=== PATIENT | male | born 1970 | race Caucasian/White ===

== ENCOUNTER 2019-06-15 17:29 | Emergency (ER) | payer OTHER, SELFPAY ==
[2019-06-15] VITALS (17 sets, daily range): BP systolic 109–128; BP diastolic 59–94; PULSE 80–103; RESP 11–25; TEMP 37.7; O2SAT 96–100; BMI 25.4
--- NOTE | 2019-06-15 17:38 | DI.CT.S_ITS ---
PROCEDURE: CT HEAD/BRAIN WO CON INDICATIONS: fell off roof, repetitive answers, brusing face TECHNIQUE: Noncontrast 4.5 mm thick angled axial sections acquired from the foramen magnum to the vertex, with coronal and sagittal reformats. For radiation dose reduction, the following was used: automated exposure control, adjustment of mA and/or kV according to patient size. COMPARISON: None. FINDINGS: Image quality: Excellent. CSF spaces: Basal cisterns are patent. No extra-axial fluid collections. Ventricles are normal in size and shape. Brain: No midline shift. No intracranial masses or hemorrhage. Paz-white matter interface is normal. Skull and face: Calvarium and visualized facial bones are intact, without suspicious lesions. Sinuses: Visualized sinuses and mastoids are clear. IMPRESSION: No CT evidence of acute intracranial pathology. No gross acute skull fracture. Dictated by: Raj Inman M.D. on 06/15/2019 at 18:34 Approved by: Raj Inman M.D. on 06/15/2019 at 18:35
--- NOTE | 2019-06-15 17:38 | DI.RAD.S_ITS ---
PROCEDURE: XR CHEST 1V INDICATIONS: fell off roof, repetitive answers, brusing face TECHNIQUE: One view of the chest was acquired. COMPARISON: None. FINDINGS: Surgical changes and devices: None. Lungs and pleura: Lungs are clear. No pleural effusions or pneumothorax. Mediastinum: Mediastinal contours appear normal. Heart size is normal. Bones and chest wall: No suspicious bony lesions. Overlying soft tissues appear unremarkable. IMPRESSION: No acute cardiopulmonary pathology. Dictated by: Raj Inman M.D. on 06/15/2019 at 18:41 Approved by: Raj Inman M.D. on 06/15/2019 at 18:41
--- NOTE | 2019-06-15 17:38 | DI.CT.S_ITS ---
PROCEDURE: CT FACIAL BONES WO CON INDICATIONS: bruising face, repetitive questioning, fell off roof TECHNIQUE: Noncontrast 2.5 mm thick axial images acquired from the mandible through the frontal sinuses, with coronal and sagittal reformatting. For radiation dose reduction, the following was used: automated exposure control, adjustment of mA and/or kV according to patient size. COMPARISON: None. FINDINGS: Image quality: Excellent. Bones and teeth: Orbital blake are intact. Sinus blake show no fracture or deformity. Nasal bones and septum are intact. Visualized portions of the mandible demonstrate no fractures or subluxation. Zygomatic arches are intact. Pterygoid plates are intact. Visualized portions of the skull base and auditory canals are intact. Sinuses: Paranasal sinuses are aerated, without fluid levels, mucosal thickening, or mucoceles. Mastoid air cells are aerated. Soft tissues: No edema, masses, or fluid collections. No enlarged lymph nodes. No soft tissue lacerations or debris. Vascular: Visualized vascular structures appear normal in the absence of contrast. Bony vascular foramina and canals are intact. IMPRESSION: 1. No gross acute facial bone or nasal bone fracture. 2. Bilateral orbital blake are intact. Dictated by: Raj Inman M.D. on 06/15/2019 at 18:35 Approved by: Raj Inman M.D. on 06/15/2019 at 18:37
--- NOTE | 2019-06-15 17:38 | DI.RAD.S_ITS ---
PROCEDURE: XR HIP W PEL IF DONE RT 2V INDICATIONS: right hip pain TECHNIQUE: AP pelvis with lateral view(s) of the right hip(s). COMPARISON: None. FINDINGS: Bones: No fractures or dislocations. Pelvic ring appears intact. No suspicious bony lesions. Soft tissues: The visualized bowel gas pattern is normal. No suspicious soft tissue calcifications. IMPRESSION: No gross acute right hip fracture or dislocation. Dictated by: Raj Inman M.D. on 06/15/2019 at 18:40 Approved by: Raj Inman M.D. on 06/15/2019 at 18:41
--- NOTE | 2019-06-15 17:38 | DI.CT.S_ITS ---
PROCEDURE: CT CERVICAL SPINE WO CON INDICATIONS: fell off roof, repetitive answers, brusing face TECHNIQUE: Noncontrast 3 mm thick sections acquired from the skull base to the T4 level. Sagittal and coronal reformats were then constructed. For radiation dose reduction, the following was used: automated exposure control, adjustment of mA and/or kV according to patient size. COMPARISON: None. FINDINGS: Image quality: Excellent. Bones: There is straightening of normal cervical lordosis. No acute cervical spine vertebral body fracture or dislocation. Vertebral body heights are well-preserved. Mild degenerative end plate changes at C5-6 and C6-7 levels are seen. There is a nondisplaced fracture involving right lateral first rib. Other visualized upper ribs are intact. Soft tissues: Prevertebral soft tissues are normal in thickness. No paravertebral hematomas. No apical pneumothoraces. IMPRESSION: 1. No acute cervical spine fracture or spondylolisthesis. 2. Nondisplaced right lateral first rib fracture. 3. Very mild degenerative end plate changes in lower cervical spine. Dictated by: Raj Inman M.D. on 06/15/2019 at 18:37 Approved by: Raj Inman M.D. on 06/15/2019 at 18:39
--- NOTE | 2019-06-15 17:38 | DI.RAD.S_ITS ---
PROCEDURE: XR WRIST RT MIN 3V INDICATIONS: right wrist pain TECHNIQUE: 3 views of the wrist were acquired. COMPARISON: None. FINDINGS: Bones: Acute comminuted and impacted fracture involving distal radius with dorsal displacement at fracture site and shortening of distal radius. Fracture of ulnar styloid is also noted. No gross dislocation. Scaphoid view: Scaphoid is intact. Soft tissues: No suspicious soft tissue calcifications. IMPRESSION: Acute comminuted and impacted distal radial fracture and ulnar styloid fracture as above. Dictated by: Raj Inman M.D. on 06/15/2019 at 18:39 Approved by: Raj Inman M.D. on 06/15/2019 at 18:40
--- NOTE | 2019-06-15 17:39 | DI.US.S_ITS ---
PROCEDURE: US ABDOMEN LIMITED INDICATIONS: FALL FROM 10' ROOF TECHNIQUE: Real-time focused scanning was performed of the abdomen, with image documentation. COMPARISON: None. FINDINGS: Limited ultrasound examination of liver and spleen shows no gross laceration. No free fluid is seen in all 4 quadrants of abdomen. IMPRESSION: No gross acute injury to liver or spleen. No abdominal free fluid. Dictated by: Raj Inman M.D. on 06/15/2019 at 18:53 Approved by: Raj Inman M.D. on 06/15/2019 at 18:54
--- NOTE | 2019-06-15 17:48 | ED_ITS ---
HPI - Trauma <Marilu Bhatia, - Last Filed: 06/18/19 09:10> General Chief Complaint: Trauma Stated Complaint: multi trauma Time Seen by Provider: 06/15/19 17:38 Source: patient Mode of arrival: wheelchair Limitations: altered mental status History of Present Illness HPI narrative: This is a 48-year-old male who comes to the emergency department with complaint of fall. The report was that patient fell from a roof. Either 8-15 feet it is unclear exact height. Patient does not recall the incident, he has repetitive answers and questions. He was sent via private plane unaccompanied from [facility] [place]. Patient can tell me his name, he has difficulty with the year, he has difficulty with the month, he does not recall the event. He does seem to understand his past medical history but unclear if this is correct. [place]. Per patient he lives in [place] and is building a house on [facility] [place]. He has complaint of right wrist pain, right hip pain as well as some bruising on the right side of the face. He denies any headache currently, he denies any neck pain, he denies any shortness of breath or abdominal pain. Denies any feeling of nausea or vomiting and denies any issues with urination or bowel movements. States he can move his legs fine but has any has pain with trying to weight bear on his right leg. He does state his fingers feel tingly. Related Data Allergies Allergy/AdvReac Type Severity Reaction Status Date / Time No Known Drug Allergies Allergy Verified 06/15/19 18:52 <Yaa Dave DO - Last Filed: 06/16/19 02:01> Review of Systems ROS Unobtainable: All systems reviewed & are unremarkable except as noted in HPI and below Constitutional Denies chills, Denies fever(s), Denies headache(s), Denies lethargy and Denies weakness Eyes Denies change in vision, Denies eye discharge, Denies irritation and Denies loss of vision ENT Ears, Nose, Mouth, and Throat: Denies headache(s) Cardiovascular Denies chest pain, Denies irregular heart rhythm, Denies lightheadedness, Denies palpitations and Denies orthopnea Gastrointestinal Gastrointestinal: Denies abdominal pain, Denies change in bowel habits, Denies diarrhea, Denies nausea and Denies vomiting Musculoskeletal Reports system reviewed and no additional complaints, except as docu and Reports deformity (Right wrist) Integumentary/Breasts Denies pruritus, Denies erythema, Denies rash and Reports wounds (Contusion right face) Neurologic Denies headache(s), Denies loss of vision and Denies weakness Comments: Repetitive questioning Probable LOC Endocrine Denies palpitations PFSH <Marilu Bhatia DO - Last Filed: 06/18/19 09:10> Medical History Patient denies significant medical history (Acute) Social History Smoking Status: Never smoker Social History Smoking Status: Never smoker Exam <Marilu Bhatia DO - Last Filed: 06/18/19 09:10> Narrative Exam Narrative: GEN: C-collar in ED. Patient appears in mild distress. HEAD: Patient has ecchymosis on the right cheek and adjacent to the right eye at the edge of the lateral canthus with a small abrasion, no raccoon/Walker sign. NECK: Nontender, painless range of motion, trachea midline Positive for Nexus criteria, there is no line tenderness, distracting injury, positive altered mental status, neuro deficit, recent EtOH. EYES: PERRLA, EOMI ENT: External inspection normal, trachea is midline, TM's are normal no hemotypanum, Nares are clear, no septal hematoma, no dental or oral injury, airway is normal and with normal occlusion, No bony tenderness RESP: Chest is nontender and has symmetric movement, no ecchymosis, breath sounds are normal no crackles, wheezes or rales CVS: Heart sounds are normal, no murmur noted, No JVD. ABG/GI: Nontender, soft, normal bowel sounds, no distention, no organomegaly, pelvic rock is negative GENIT, RECTAL: Normal external inspection. NEURO: Oriented AOx1, neuro is grossly intact, sensation and motor is normal all 4 extremities moving, cranial nerves II through XII are intact, GCS is 15 PSYCH: Normal mood and affect SKIN: Intact, warm and dry, no crepitus and without decubitus BACK: No CVA tenderness, no vertebral tenderness, no step-off's, no crepitus EXT: Patient has deformity of his right wrist, he has a radial pulse that is 2+, he has cap refill less than 2 seconds. He has sensation to light touch in full range of motion of his fingers but describes tingling. Right hip is mildly tender, patient has full range of motion passive and active leave. No pedal edema, normal color and temperature, normal range of motion of extremities with normal tendon exam except as above, 2+ pulses in all four extremities Initial Vital Signs Initial Vital Signs: Vital Signs Temperature 99.8 F H 06/15/19 17:35 Pulse Rate 103 H 06/15/19 17:35 Respiratory Rate 06/15/19 17:35 Blood Pressure 128/81 06/15/19 17:35 Pulse Oximetry 100 06/15/19 17:35 <Yaa Dave DO - Last Filed: 06/16/19 02:01> Initial Vital Signs Initial Vital Signs: Vital Signs Temperature 99.8 F H 06/15/19 17:35 Pulse Rate 103 H 06/15/19 17:35 Respiratory Rate 06/15/19 17:35 Blood Pressure 128/81 06/15/19 17:35 Pulse Oximetry 100 06/15/19 17:35 <Yaa Dave, DO - Last Filed: 06/16/19 02:01> Orthopedic Fracture Reduction Fracture #1: Time Out Performed: Yes Side: right Fracture Reduction Location: radius and ulna Analgesia: procedural sedation Technique: direct manipulation and traction/counter-traction Post Reduction X-rays Demonstrate: acceptable reduction Post-reduction neuro exam: no change (numbness in thumb.) Post-reduction vascular exam: intact Splint Applied: Yes Patient Tolerated Procedure: Well Orthopedic Splinting/Casting Injury #1: Side: right Upper Extremity Injury Location: wrist Upper Extremity Immobilizer: sugar tong splint Post splinting neuro exam: intact and no change Post splinting vascular exam: no change Placed by: Provider Procedural Sedation Patient Age: Patient is 5yrs or older Consent signed: Yes Time out performed: Yes Indication: fracture/dislocation reduction ASA Class: I Mallampati Airway Classification: Class I Preparation: cardiac cath lab technologist applied, pulse oximeter, capnometry used, reversal agents at bedside, suction/airway equipment at bedside and IV secured IV Propofol dose (mg): 85 ED Sedation Level: Moderate (Concious) Patient Tolerated Procedure: Well Complications: none Interventions: Airway repositioned Scores <Marilu Bhatia DO - Last Filed: 06/18/19 09:10> GCS Bertrand coma scale eye opening: Spontaneous Bertrand coma scale verbal response: Confused Bertrand coma scale motor response: Obey commands Le coma scale total score: 14 Course <Marilu Bhatia DO - Last Filed: 06/18/19 09:10> Orders Ordered: Discontinued Medications Diphtheria/Tetanus/Acell Pertussis (Adacel) 0.5 ml IM .ONCE ONE Stop: 06/15/19 19:07 Last Admin: 06/15/19 19:07 Dose: 0.5 ml Sodium Chloride (Normal Saline 0.9%) 1,000 mls @ 150 mls/hr IV CONT KATY Last Infusion: 06/15/19 22:46 Dose: 0 mls/hr Admin: 06/15/19 19:02 Dose: 150 mls/hr Propofol (Diprivan) 85 mg 1 mg/kg (85 mg) IV NOW ONE Stop: 06/15/19 19:17 Last Admin: 06/15/19 19:45 Dose: 85 mg Vital Signs - 8 hr 06/15/19 19:10 06/15/19 19:41 06/15/19 19:47 Pulse Rate 92 H 88 89 Respiratory Rate 15 17 24 Blood Pressure [Left Arm] 109/90 118/69 119/74 Pulse Oximetry 96 100 99 06/15/19 19:50 06/15/19 19:53 06/15/19 19:58 Pulse Rate 80 80 82 Respiratory Rate 12 14 20 Blood Pressure [Left Arm] 122/74 119/73 122/83 Pulse Oximetry 100 100 100 06/15/19 20:00 06/15/19 20:05 06/15/19 20:10 Pulse Rate 84 86 88 Respiratory Rate 19 15 21 Blood Pressure [Left Arm] 118/79 116/74 110/94 H Pulse Oximetry 100 97 99 06/15/19 20:15 06/15/19 20:21 06/15/19 20:30 Pulse Rate 87 94 H Respiratory Rate 16 20 22 Blood Pressure [Left Arm] 110/59 L 117/74 Pulse Oximetry 99 100 06/15/19 21:00 06/15/19 21:48 06/15/19 22:15 Pulse Rate 97 H 91 H 91 H Respiratory Rate 25 H 20 11 L Blood Pressure [Left Arm] 118/69 112/71 114/69 Pulse Oximetry 100 100 100 06/15/19 22:26 Pulse Rate 90 Respiratory Rate 19 Blood Pressure [Left Arm] 118/69 Pulse Oximetry 97 <Yaa Dave DO - Last Filed: 06/16/19 02:01> Orders Ordered: Discontinued Medications Diphtheria/Tetanus/Acell Pertussis (Adacel) 0.5 ml IM .ONCE ONE Stop: 06/15/19 19:07 Last Admin: 06/15/19 19:07 Dose: 0.5 ml Sodium Chloride (Normal Saline 0.9%) 1,000 mls @ 150 mls/hr IV CONT KATY Last Infusion: 06/15/19 22:46 Dose: 0 mls/hr Admin: 06/15/19 19:02 Dose: 150 mls/hr Propofol (Diprivan) 85 mg 1 mg/kg (85 mg) IV NOW ONE Stop: 06/15/19 19:17 Last Admin: 06/15/19 19:45 Dose: 85 mg Vital Signs - 8 hr 06/15/19 19:10 06/15/19 19:41 06/15/19 19:47 Pulse Rate 92 H 88 89 Respiratory Rate 15 17 24 Blood Pressure [Left Arm] 109/90 118/69 119/74 Pulse Oximetry 96 100 99 06/15/19 19:50 06/15/19 19:53 06/15/19 19:58 Pulse Rate 80 80 82 Respiratory Rate 12 14 20 Blood Pressure [Left Arm] 122/74 119/73 122/83 Pulse Oximetry 100 100 100 06/15/19 20:00 06/15/19 20:05 06/15/19 20:10 Pulse Rate 84 86 88 Respiratory Rate 19 15 21 Blood Pressure [Left Arm] 118/79 116/74 110/94 H Pulse Oximetry 100 97 99 06/15/19 20:15 06/15/19 20:21 06/15/19 20:30 Pulse Rate 87 94 H Respiratory Rate 16 20 22 Blood Pressure [Left Arm] 110/59 L 117/74 Pulse Oximetry 99 100 06/15/19 21:00 06/15/19 21:48 06/15/19 22:15 Pulse Rate 97 H 91 H 91 H Respiratory Rate 25 H 20 11 L Blood Pressure [Left Arm] 118/69 112/71 114/69 Pulse Oximetry 100 100 100 06/15/19 22:26 Pulse Rate 90 Respiratory Rate 19 Blood Pressure [Left Arm] 118/69 Pulse Oximetry 97 MDM - Trauma <Marilu Bhatia, - Last Filed: 06/18/19 09:10> Lab Data Result diagrams: 06/15/19 18:50 06/15/19 18:50 Lab Results 06/15/19 06/15/19 06/15/19 Range/Units 18:50 18:50 18:50 WBC 12.9 H (4.5-11.0) X10^3/uL RBC 4.67 (4.5-5.9) X10^6/uL Hgb 14.5 (13.5-17.5) g/dL Hct 42.2 (41-53) % MCV 90.3 (80-100) fL MCH 31.0 (26-34) PG MCHC 34.3 (30-36) % RDW 12.8 (11.6-14.8) % Plt Count 196 (150-400) X10^3/uL Neut % (Auto) 88.4 H (50-75) % Lymph % (Auto) 4.8 L (25-40) % [place] % (Auto) 6.4 (3-14) % Eos % (Auto) 0.1 L (2-4) % Baso % (Auto) 0.3 (0-2) % Neut # (Auto) 15480 H (0532-7787) /uL Lymph # (Auto) 600 L (2097-2848) /uL [place] # (Auto) 800 (0-900) /uL Eos # (Auto) 0 (0-450) /uL Baso # (Auto) 0 (0-100) /uL PT 13.5 H (10.1-12.7) SECONDS INR 1.2 (0.9-1.3) APTT 26 L (26.4-36.2) SECONDS Sodium 139 (137-145) mmol/L Potassium 3.5 (3.4-5.1) mmol/L Chloride 105 (98-107) mmol/L Carbon Dioxide 23 (22-32) mmol/L BUN 22 H (9-20) mg/dL Creatinine 1.00 (0.66-1.25) mg/dL Estimated GFR > 60.0 (>60) mL/min BUN/Creatinine Ratio 22.0 (6-22) Glucose 101 H (70-100) mg/dL Calcium 9.5 (8.4-10.2) mg/dL Total Bilirubin 3.7 H (0.2-1.3) mg/dL AST 50 (17-59) IU/L ALT 47 (21-72) IU/L Alkaline Phosphatase 83 (38-126) U/L Total Creatine Kinase 313 H (55-170) U/L CK-MB (CK-2) 3.69 H (<2.37) ng/mL CK-MB (CK-2) Rel Index 1.2 L (1.5-5.0) % Troponin I 0.019 (0.01-0.034) ng/mL Total Protein 7.2 (6.3-8.2) g/dL Albumin 4.2 (3.5-5.0) g/dL Globulin 3.0 (1.7-4.1) g/dL Albumin/Globulin Ratio 1.4 (1.0-2.8) Lipase 96 (23-300) U/L Urine Opiates Screen (Negative) Ur Oxycodone Screen (Negative) Urine Methadone Screen (Negative) Ur Barbiturates Screen (Negative) U Tricyclic Antidepress (Negative) Ur Phencyclidine Scrn (Negative) Ur Amphetamines Screen (Negative) U Methamphetamines Scrn (Negative) Ur MDMA Scrn (Ecstasy) (Negative) U Benzodiazepines Scrn (Negative) Urine Cocaine Screen (Negative) U Marijuana (THC) Screen (Negative) Ethyl Alcohol < 10 mg/dL Blood Type Antibody Screen 06/15/19 06/15/19 Range/Units 18:50 21:05 WBC (4.5-11.0) X10^3/uL RBC (4.5-5.9) X10^6/uL Hgb (13.5-17.5) g/dL Hct (41-53) % MCV (80-100) fL MCH (26-34) PG MCHC (30-36) % RDW (11.6-14.8) % Plt Count (150-400) X10^3/uL Neut % (Auto) (50-75) % Lymph % (Auto) (25-40) % Clarion % (Auto) (3-14) % Eos % (Auto) (2-4) % Baso % (Auto) (0-2) % Neut # (Auto) (0823-5253) /uL Lymph # (Auto) (1043-8949) /uL Clarion # (Auto) (0-900) /uL Eos # (Auto) (0-450) /uL Baso # (Auto) (0-100) /uL PT (10.1-12.7) SECONDS INR (0.9-1.3) APTT (26.4-36.2) SECONDS Sodium (137-145) mmol/L Potassium (3.4-5.1) mmol/L Chloride (98-107) mmol/L Carbon Dioxide (22-32) mmol/L BUN (9-20) mg/dL Creatinine (0.66-1.25) mg/dL Estimated GFR (>60) mL/min BUN/Creatinine Ratio (6-22) Glucose (70-100) mg/dL Calcium (8.4-10.2) mg/dL Total Bilirubin (0.2-1.3) mg/dL AST (17-59) IU/L ALT (21-72) IU/L Alkaline Phosphatase (38-126) U/L Total Creatine Kinase (55-170) U/L CK-MB (CK-2) (<2.37) ng/mL CK-MB (CK-2) Rel Index (1.5-5.0) % Troponin I (0.01-0.034) ng/mL Total Protein (6.3-8.2) g/dL Albumin (3.5-5.0) g/dL Globulin (1.7-4.1) g/dL Albumin/Globulin Ratio (1.0-2.8) Lipase (23-300) U/L Urine Opiates Screen Negative (Negative) Ur Oxycodone Screen Negative (Negative) Urine Methadone Screen Negative (Negative) Ur Barbiturates Screen Negative (Negative) U Tricyclic Antidepress Negative (Negative) Ur Phencyclidine Scrn Negative (Negative) Ur Amphetamines Screen Negative (Negative) U Methamphetamines Scrn Negative (Negative) Ur MDMA Scrn (Ecstasy) Negative (Negative) U Benzodiazepines Scrn Negative (Negative) Urine Cocaine Screen Negative (Negative) U Marijuana (THC) Screen Negative (Negative) Ethyl Alcohol mg/dL Blood Type A Positive Antibody Screen Negative Urine Dip Bedside Urine Glucose Negative Bedside Urine Bilirubin - Negative Bedside Urine Ketone +++ 80 Urine Specific [place] 1.015 Bedside Urine Occult Blood - Negative Bedside Urine pH 7.0 Bedside Urine Protein +/- 15 Bedside Urine Urobilinogen +/- 1mg Bedside Urine Nitrite - Negative Bedside Urine Leukocytes - Negative Esterase MDM Narrative Medical decision making narrative: Patient care transferred to Dr. Dave. Patient imaging, labs, EKG are pending. Patient's splint was readjusted as it was not supporting his wrist and placed in order to support his wrist better. Patient had just gne for CT scan when Dr. Dave arrived. Vitals signs have been stable. No worsening or improvement in mentation. <Yaa Dave, DO - Last Filed: 06/16/19 02:01> Lab Data Attestation: I reviewed the patient's lab results. Lab Results 06/15/19 06/15/19 06/15/19 Range/Units 18:50 18:50 18:50 WBC 12.9 H (4.5-11.0) X10^3/uL RBC 4.67 (4.5-5.9) X10^6/uL Hgb 14.5 (13.5-17.5) g/dL Hct 42.2 (41-53) % MCV 90.3 (80-100) fL MCH 31.0 (26-34) PG MCHC 34.3 (30-36) % RDW 12.8 (11.6-14.8) % Plt Count 196 (150-400) X10^3/uL Neut % (Auto) 88.4 H (50-75) % Lymph % (Auto) 4.8 L (25-40) % [place] % (Auto) 6.4 (3-14) % Eos % (Auto) 0.1 L (2-4) % Baso % (Auto) 0.3 (0-2) % Neut # (Auto) 34556 H (6268-8128) /uL Lymph # (Auto) 600 L (9142-2627) /uL [place] # (Auto) 800 (0-900) /uL Eos # (Auto) 0 (0-450) /uL Baso # (Auto) 0 (0-100) /uL PT 13.5 H (10.1-12.7) SECONDS INR 1.2 (0.9-1.3) APTT 26 L (26.4-36.2) SECONDS Sodium 139 (137-145) mmol/L Potassium 3.5 (3.4-5.1) mmol/L Chloride 105 (98-107) mmol/L Carbon Dioxide 23 (22-32) mmol/L BUN 22 H (9-20) mg/dL Creatinine 1.00 (0.66-1.25) mg/dL Estimated GFR > 60.0 (>60) mL/min BUN/Creatinine Ratio 22.0 (6-22) Glucose 101 H (70-100) mg/dL Calcium 9.5 (8.4-10.2) mg/dL Total Bilirubin 3.7 H (0.2-1.3) mg/dL AST 50 (17-59) IU/L ALT 47 (21-72) IU/L Alkaline Phosphatase 83 (38-126) U/L Total Creatine Kinase 313 H (55-170) U/L CK-MB (CK-2) 3.69 H (<2.37) ng/mL CK-MB (CK-2) Rel Index 1.2 L (1.5-5.0) % Troponin I 0.019 (0.01-0.034) ng/mL Total Protein 7.2 (6.3-8.2) g/dL Albumin 4.2 (3.5-5.0) g/dL Globulin 3.0 (1.7-4.1) g/dL Albumin/Globulin Ratio 1.4 (1.0-2.8) Lipase 96 (23-300) U/L Urine Opiates Screen (Negative) Ur Oxycodone Screen (Negative) Urine Methadone Screen (Negative) Ur Barbiturates Screen (Negative) U Tricyclic Antidepress (Negative) Ur Phencyclidine Scrn (Negative) Ur Amphetamines Screen (Negative) U Methamphetamines Scrn (Negative) Ur MDMA Scrn (Ecstasy) (Negative) U Benzodiazepines Scrn (Negative) Urine Cocaine Screen (Negative) U Marijuana (THC) Screen (Negative) Ethyl Alcohol < 10 mg/dL Blood Type Antibody Screen 06/15/19 06/15/19 Range/Units 18:50 21:05 WBC (4.5-11.0) X10^3/uL RBC (4.5-5.9) X10^6/uL Hgb (13.5-17.5) g/dL Hct (41-53) % MCV (80-100) fL MCH (26-34) PG MCHC (30-36) % RDW (11.6-14.8) % Plt Count (150-400) X10^3/uL Neut % (Auto) (50-75) % Lymph % (Auto) (25-40) % [place] % (Auto) (3-14) % Eos % (Auto) (2-4) % Baso % (Auto) (0-2) % Neut # (Auto) (6149-7442) /uL Lymph # (Auto) (8645-7719) /uL [place] # (Auto) (0-900) /uL Eos # (Auto) (0-450) /uL Baso # (Auto) (0-100) /uL PT (10.1-12.7) SECONDS INR (0.9-1.3) APTT (26.4-36.2) SECONDS Sodium (137-145) mmol/L Potassium (3.4-5.1) mmol/L Chloride (98-107) mmol/L Carbon Dioxide (22-32) mmol/L BUN (9-20) mg/dL Creatinine (0.66-1.25) mg/dL Estimated GFR (>60) mL/min BUN/Creatinine Ratio (6-22) Glucose (70-100) mg/dL Calcium (8.4-10.2) mg/dL Total Bilirubin (0.2-1.3) mg/dL AST (17-59) IU/L ALT (21-72) IU/L Alkaline Phosphatase (38-126) U/L Total Creatine Kinase (55-170) U/L CK-MB (CK-2) (<2.37) ng/mL CK-MB (CK-2) Rel Index (1.5-5.0) % Troponin I (0.01-0.034) ng/mL Total Protein (6.3-8.2) g/dL Albumin (3.5-5.0) g/dL Globulin (1.7-4.1) g/dL Albumin/Globulin Ratio (1.0-2.8) Lipase (23-300) U/L Urine Opiates Screen Negative (Negative) Ur Oxycodone Screen Negative (Negative) Urine Methadone Screen Negative (Negative) Ur Barbiturates Screen Negative (Negative) U Tricyclic Antidepress Negative (Negative) Ur Phencyclidine Scrn Negative (Negative) Ur Amphetamines Screen Negative (Negative) U Methamphetamines Scrn Negative (Negative) Ur MDMA Scrn (Ecstasy) Negative (Negative) U Benzodiazepines Scrn Negative (Negative) Urine Cocaine Screen Negative (Negative) U Marijuana (THC) Screen Negative (Negative) Ethyl Alcohol mg/dL Blood Type A Positive Antibody Screen Negative Urine Dip Bedside Urine Glucose Negative Bedside Urine Bilirubin - Negative Bedside Urine Ketone +++ 80 Urine Specific [place] 1.015 Bedside Urine Occult Blood - Negative Bedside Urine pH 7.0 Bedside Urine Protein +/- 15 Bedside Urine Urobilinogen +/- 1mg Bedside Urine Nitrite - Negative Bedside Urine Leukocytes - Negative Esterase Imaging Data CT scan - head: Radiologist's impression: PROCEDURE: CT HEAD/BRAIN WO CON INDICATIONS: fell off roof, repetitive answers, brusing face TECHNIQUE: Noncontrast 4.5 mm thick angled axial sections acquired from the foramen magnum to the vertex, with coronal and sagittal reformats. For radiation dose reduction, the following was used: automated exposure control, adjustment of mA and/or kV according to patient size. COMPARISON: None. FINDINGS: Image quality: Excellent. CSF spaces: Basal cisterns are patent. No extra-axial fluid collections. Ventricles are normal in size and shape. Brain: No midline shift. No intracranial masses or hemorrhage. Paz-white matter interface is normal. Skull and face: Calvarium and visualized facial bones are intact, without suspicious lesions. Sinuses: Visualized sinuses and mastoids are clear. IMPRESSION: No CT evidence of acute intracranial pathology. No gross acute skull fracture. Dictated by: Raj Inman M.D. on 06/15/2019 at 18:34 ct facial: Radiologist's impression: PROCEDURE: CT FACIAL BONES WO CON INDICATIONS: bruising face, repetitive questioning, fell off roof TECHNIQUE: Noncontrast 2.5 mm thick axial images acquired from the mandible through the frontal sinuses, with coronal and sagittal reformatting. For radiation dose reduction, the following was used: automated exposure control, adjustment of mA and/or kV according to patient size. COMPARISON: None. FINDINGS: Image quality: Excellent. Bones and teeth: Orbital blake are intact. Sinus blake show no fracture or deformity. Nasal bones and septum are intact. Visualized portions of the mandible demonstrate no fractures or subluxation. Zygomatic arches are intact. Pterygoid plates are intact. Visualized portions of the skull base and auditory canals are intact. Sinuses: Paranasal sinuses are aerated, without fluid levels, mucosal thickening, or mucoceles. Mastoid air cells are aerated. Soft tissues: No edema, masses, or fluid collections. No enlarged lymph nodes. No soft tissue lacerations or debris. Vascular: Visualized vascular structures appear normal in the absence of contrast. Bony vascular foramina and canals are intact. IMPRESSION: 1. No gross acute facial bone or nasal bone fracture. 2. Bilateral orbital blake are intact. Dictated by: Raj Inman M.D. on 06/15/2019 at 18:35 ct neck: Radiologist's impression: PROCEDURE: CT CERVICAL SPINE WO CON INDICATIONS: fell off roof, repetitive answers, brusing face TECHNIQUE: Noncontrast 3 mm thick sections acquired from the skull base to the T4 level. Sagittal and coronal reformats were then constructed. For radiation dose reduction, the following was used: automated exposure control, adjustment of mA and/or kV according to patient size. COMPARISON: None. FINDINGS: Image quality: Excellent. Bones: There is straightening of normal cervical lordosis. No acute cervical spine vertebral body fracture or dislocation. Vertebral body heights are well- preserved. Mild degenerative end plate changes at C5-6 and C6-7 levels are seen. There is a nondisplaced fracture involving right lateral first rib. Other visualized upper ribs are intact. Soft tissues: Prevertebral soft tissues are normal in thickness. No paravertebral hematomas. No apical pneumothoraces. IMPRESSION: 1. No acute cervical spine fracture or spondylolisthesis. 2. Nondisplaced right lateral first rib fracture. 3. Very mild degenerative end plate changes in lower cervical spine. Dictated by: Raj Inman M.D. on 06/15/2019 at 18:37 ct chest/ab/pelvis: Radiologist's impression: PROCEDURE: CT CHEST ABD PEL W CON INDICATIONS: fall 1st rib fracture and right pelvis pain TECHNIQUE: After the administration of intravenous contrast, 5 mm thick sections acquired from the lung apices to the symphysis. 2.5 mm thick coronal and sagittal reformats were acquired. Additional 7 mm thick coronal maximum intensity projection (MIP) reformats acquired through the lungs. Optional 10-minute delayed imaging may be performed from the kidneys to the bladder. For radiation dose reduction, the following was used: automated exposure control, adjustment of mA and/or kV according to patient size. COMPARISON: None. FINDINGS: Image quality: Excellent. CHEST: Lungs: No pulmonary contusions or lacerations. Bibasilar dependent atelectasis/scarring are seen. No acute airspace opacities. No pneumothorax or hemothorax. Central and peripheral airways appear patent and normal in caliber. Mediastinum: No mediastinal hematomas. Heart size is normal. No pericardial effusion. Thoracic aorta and pulmonary arteries demonstrate normal size and enhancement. No mediastinal or hilar adenopathy. Esophagus is normal in caliber. No hiatal hernia. Chest wall: Nondisplaced fracture involving right posterior lateral first rib is seen. No other rib fracture is noted. No subcutaneous emphysema. No axillary or supraclavicular adenopathy. Thyroid gland is within normal limits. ABDOMEN: Solid organs: Liver is normal in size and enhancement, without lacerations. Gallbladder is within normal limits. Biliary system is non-dilated. Pancreas enhances normally, without transection. Spleen is normal in size and enhancement, without lacerations. No adrenal hematomas. Both kidneys enhance normally, without hydronephrosis or lacerations. Peritoneum and bowel: No free fluid or air. Unenhanced bowel loops demonstrate normal wall thickness and caliber. Nodes and vessels: No retroperitoneal or mesenteric adenopathy. Aorta and inferior vena cava are normal in size and enhancement. Miscellaneous: No ventral hernias. PELVIS: Genitourinary: Bladder wall thickness is normal. Miscellaneous: No inguinal hernias or adenopathy. Bones: Acute nondisplaced fracture involving right anterior acetabulum/superior pubic ramus. Acute nondisplaced fracture involving right inferior pubic ramus is also seen. S-shaped scoliosis of thoracolumbar spine is seen. No acute vertebral compression fractures. IMPRESSION: 1. Acute nondisplaced fracture involving right posterior lateral first rib. No other acute rib fracture is seen. 2. Acute nondisplaced fracture involving lateral portion of right superior pubic ramus extending to involve anterior right acetabulum. Nondisplaced fracture involving right mid inferior pubic ramus. 3. No acute solid organ injury within the chest, abdomen or pelvis. 4. Scoliosis of thoracic and lumbar spine. No gross acute compression fracture or traumatic spondylolisthesis. Dictated by: Raj Inman M.D. on 06/15/2019 at 19:48 Chest x-ray: Radiologist's impression: PROCEDURE: XR CHEST 1V INDICATIONS: fell off roof, repetitive answers, brusing face TECHNIQUE: One view of the chest was acquired. COMPARISON: None. FINDINGS: Surgical changes and devices: None. Lungs and pleura: Lungs are clear. No pleural effusions or pneumothorax. Mediastinum: Mediastinal contours appear normal. Heart size is normal. Bones and chest wall: No suspicious bony lesions. Overlying soft tissues appear unremarkable. IMPRESSION: No acute cardiopulmonary pathology. Dictated by: Raj Inman M.D. on 06/15/2019 at 18:41 right hip: Radiologist's impression: PROCEDURE: XR HIP W PEL IF DONE RT 2V INDICATIONS: right hip pain TECHNIQUE: AP pelvis with lateral view(s) of the right hip(s). COMPARISON: None. FINDINGS: Bones: No fractures or dislocations. Pelvic ring appears intact. No suspicious bony lesions. Soft tissues: The visualized bowel gas pattern is normal. No suspicious soft tissue calcifications. IMPRESSION: No gross acute right hip fracture or dislocation. Dictated by: Raj Inman M.D. on 06/15/2019 at 18:40 right wrist #1: Radiologist's impression: PROCEDURE: XR WRIST RT MIN 3V INDICATIONS: right wrist pain TECHNIQUE: 3 views of the wrist were acquired. COMPARISON: None. FINDINGS: Bones: Acute comminuted and impacted fracture involving distal radius with dorsal displacement at fracture site and shortening of distal radius. Fracture of ulnar styloid is also noted. No gross dislocation. Scaphoid view: Scaphoid is intact. Soft tissues: No suspicious soft tissue calcifications. IMPRESSION: Acute comminuted and impacted distal radial fracture and ulnar styloid fracture as above. Dictated by: Raj Inman M.D. on 06/15/2019 at 18:39 wrist #2: Radiologist's impression: PROCEDURE: XR WRIST RT 2V INDICATIONS: post reduction TECHNIQUE: 2 views of the wrist were acquired. COMPARISON: [facility], XR WRIST RT MIN 3V, 06/15/2019, 17:55. FINDINGS: Bones: There is interval reduction of earlier noted comminuted and displaced distal radial fracture with improvement in distal radial alignment. Fracture of ulnar styloid is again seen.. No suspicious bony lesions. Scaphoid view: Scaphoid is intact. Soft tissues: No suspicious soft tissue calcifications. IMPRESSION: Interval reduction of earlier noted displaced right distal radial fracture with improved distal radial alignment. Dictated by: Raj Inman M.D. on 06/15/2019 at 20:21 US - abdomen: Radiologist's impression: PROCEDURE: US ABDOMEN LIMITED INDICATIONS: FALL FROM 10' ROOF TECHNIQUE: Real-time focused scanning was performed of the abdomen, with image documentation. COMPARISON: None. FINDINGS: Limited ultrasound examination of liver and spleen shows no gross laceration. No free fluid is seen in all 4 quadrants of abdomen. IMPRESSION: No gross acute injury to liver or spleen. No abdominal free fluid. Dictated by: Raj Inman M.D. on 06/15/2019 at 18:53 ECG Data Attestation: I personally reviewed and interpreted this ECG as follows: Prior ECG tracings: not available for review MDM Narrative Medical decision making narrative: I received sign-out from Dr. Bhatia. I have done independent exam of myself. He has an obvious right wrist deformity and right facial contusion. He is complaining of some some numbness in his right thumb and finger tips. CTs came back with right 1st rib fracture. Decision for further scanning of chest abdomen pelvis. Patient was also complaining of some right hip pain but he was able to move his leg pretty easily and there is no shortening of the extremities, and he is neurovascularly intact. CT showed isolated right rib fracture along with right superior rami fracture with extension into the acetabulum. Due to this patient will need to be transferred to [facility]. Patient's fracture of his wrist is reduced however he is still complaining of numbness in his thumb which he was complaining of prior to my reduction. 9:00 p.m. I spoke with Dr. Faustin [facility]. Happy to accept patient for transfer. Discharge Plan Departure Patient Disposition: [facility] Clinical Impression: Concussion Qualifiers: Encounter type: initial encounter Loss of consciousness presence/duration: with LOC of unspecified duration Qualified Code(s): S06.0X9A - Concussion with loss of consciousness of unspecified duration, initial encounter Fracture of right wrist Qualifiers: Encounter type: initial encounter Fracture type: closed Qualified Code(s): S62.101A - Fracture of unspecified carpal bone, right wrist, initial encounter f or closed fracture Right rib fracture Qualifiers: Encounter type: initial encounter Rib fracture type: single rib Fracture type: closed Qualified Code(s): S22.31XA - Fracture of one rib, right side, initial encounter for closed fracture Acetabulum fracture, right Qualifiers: Encounter type: initial encounter Sublocation of acetabulum: unspecified portion of acetabulum Fracture type: closed Fracture alignment: nondisplaced Qualified Code(s): S32.401A - Unspecified fracture of right acetabulum, initial encounter for closed fracture Discharge Date/Time: 06/15/19 22:45 Interventions: ED Discharge Assessment Last Done: 06/15/19 23:37
[2019-06-15] MEDS: SODIUM CHLORIDE 0.9% 1,000 ML 150 ML IV (19:02)
--- NOTE | 2019-06-15 19:06 | DI.CT.S_ITS ---
PROCEDURE: CT CHEST ABD PEL W CON INDICATIONS: fall 1st rib fracture and right pelvis pain TECHNIQUE: After the administration of intravenous contrast, 5 mm thick sections acquired from the lung apices to the symphysis. 2.5 mm thick coronal and sagittal reformats were acquired. Additional 7 mm thick coronal maximum intensity projection (MIP) reformats acquired through the lungs. Optional 10-minute delayed imaging may be performed from the kidneys to the bladder. For radiation dose reduction, the following was used: automated exposure control, adjustment of mA and/or kV according to patient size. COMPARISON: None. FINDINGS: Image quality: Excellent. CHEST: Lungs: No pulmonary contusions or lacerations. Bibasilar dependent atelectasis/scarring are seen. No acute airspace opacities. No pneumothorax or hemothorax. Central and peripheral airways appear patent and normal in caliber. Mediastinum: No mediastinal hematomas. Heart size is normal. No pericardial effusion. Thoracic aorta and pulmonary arteries demonstrate normal size and enhancement. No mediastinal or hilar adenopathy. Esophagus is normal in caliber. No hiatal hernia. Chest wall: Nondisplaced fracture involving right posterior lateral first rib is seen. No other rib fracture is noted. No subcutaneous emphysema. No axillary or supraclavicular adenopathy. Thyroid gland is within normal limits. ABDOMEN: Solid organs: Liver is normal in size and enhancement, without lacerations. Gallbladder is within normal limits. Biliary system is non-dilated. Pancreas enhances normally, without transection. Spleen is normal in size and enhancement, without lacerations. No adrenal hematomas. Both kidneys enhance normally, without hydronephrosis or lacerations. Peritoneum and bowel: No free fluid or air. Unenhanced bowel loops demonstrate normal wall thickness and caliber. Nodes and vessels: No retroperitoneal or mesenteric adenopathy. Aorta and inferior vena cava are normal in size and enhancement. Miscellaneous: No ventral hernias. PELVIS: Genitourinary: Bladder wall thickness is normal. Miscellaneous: No inguinal hernias or adenopathy. Bones: Acute nondisplaced fracture involving right anterior acetabulum/superior pubic ramus. Acute nondisplaced fracture involving right inferior pubic ramus is also seen. S-shaped scoliosis of thoracolumbar spine is seen. No acute vertebral compression fractures. IMPRESSION: 1. Acute nondisplaced fracture involving right posterior lateral first rib. No other acute rib fracture is seen. 2. Acute nondisplaced fracture involving lateral portion of right superior pubic ramus extending to involve anterior right acetabulum. Nondisplaced fracture involving right mid inferior pubic ramus. 3. No acute solid organ injury within the chest, abdomen or pelvis. 4. Scoliosis of thoracic and lumbar spine. No gross acute compression fracture or traumatic spondylolisthesis. Dictated by: Raj Inman M.D. on 06/15/2019 at 19:48 Approved by: Raj Inman M.D. on 06/15/2019 at 19:56
[2019-06-15] MEDS: TET,DIPH,PERTUSS(ACELL),VAC/PF 0.5 ML SYRINGE IM (19:07)
[2019-06-15 19:12] LABS: INR 1.2 (0.9-1.3); Prothrombin Time 13.5 SECONDS (10.1-12.7)
[2019-06-15 19:14] LABS: PTT Partial Thromboplastin Tim 26 SECONDS (26.4-36.2)
[2019-06-15] MEDS: PROPOFOL 200 MG/20 ML VIAL 85 MG IV (19:45)
--- NOTE | 2019-06-15 20:00 | PC.NURSE ---
Pt awake, alert and oriented. Procedural sedation completed. GCS 15.
[2019-06-15 20:01] LABS: Alanine Aminotransferase 47 IU/L (21-72); Albumin 4.2 g/dL (3.5-5.0); Albumin Globulin Ratio 1.4 (1.0-2.8); Alkaline Phosphatase 83 U/L (38-126); Aspartate Aminotransferase 50 IU/L (17-59); Bilirubin Total 3.7 mg/dL (0.2-1.3); Blood Urea Nitrogen 22 mg/dL (9-20); Calcium 9.5 mg/dL (8.4-10.2); Carbon Dioxide 23 mmol/L (22-32); Chloride 105 mmol/L (98-107); Creatine Kinase 313 U/L (55-170); Estimated Glomerular Filt Rate > 60.0 mL/min (>60); Ethanol (ETOH) < 10 mg/dL; Glucose 101 mg/dL (70-100); Lipase 96 U/L (23-300); Potassium 3.5 mmol/L (3.4-5.1); Sodium 139 mmol/L (137-145); Total Protein 7.2 g/dL (6.3-8.2)
[2019-06-15 20:06] LABS: Add Manual Diff / Slide Review NO; Basophils Absolute Auto 0 /uL (0-100); Basophils Percent Auto 0.3 % (0-2); Eosinophils Absolute Auto 0 /uL (0-450); Eosinophils Percent Auto 0.1 % (2-4); Hematocrit 42.2 % (41-53); Hemoglobin 14.5 g/dL (13.5-17.5); Lymphocytes Absolute Auto 600 /uL (1100-4500); Lymphocytes Percent Auto 4.8 % (25-40); Mean Corpuscular HGB Conc 34.3 % (30-36); Mean Corpuscular Volume 90.3 fL (80-100); Monocytes Absolute Auto 800 /uL (0-900); Monocytes Percent Auto 6.4 % (3-14); Neutrophils Absolute Auto 11400 /uL (1500-7000); Neutrophils Percent Auto 88.4 % (50-75); Platelet Count 196 X10^3/uL (150-400); Red Blood Cell Count 4.67 X10^6/uL (4.5-5.9); Red Cell Distribution Width 12.8 % (11.6-14.8); White Blood Cell Count 12.9 X10^3/uL (4.5-11.0)
--- NOTE | 2019-06-15 20:10 | DI.RAD.S_ITS ---
PROCEDURE: XR WRIST RT 2V INDICATIONS: post reduction TECHNIQUE: 2 views of the wrist were acquired. COMPARISON: [facility], CR, XR WRIST RT MIN 3V, 06/15/2019, 17:55. FINDINGS: Bones: There is interval reduction of earlier noted comminuted and displaced distal radial fracture with improvement in distal radial alignment. Fracture of ulnar styloid is again seen.. No suspicious bony lesions. Scaphoid view: Scaphoid is intact. Soft tissues: No suspicious soft tissue calcifications. IMPRESSION: Interval reduction of earlier noted displaced right distal radial fracture with improved distal radial alignment. Dictated by: Raj Inman M.D. on 06/15/2019 at 20:21 Approved by: Raj Inman M.D. on 06/15/2019 at 20:22
[2019-06-15 20:14] LABS: HEMOLYSIS < 15 (0-50); Troponin I 0.019 ng/mL (0.01-0.034)
[2019-06-15 20:16] LABS: CKMB % Relative Index 1.2 % (1.5-5.0); Creatine Kinase MB 3.69 ng/mL (<2.37)
[2019-06-15 21:16] LABS: Urine Amphetamines Negative (Negative); Urine Barbiturates Negative (Negative); Urine Benzodiazepines Negative (Negative); Urine Cocaine Negative (Negative); Urine MDMA Negative (Negative); Urine Methadone Negative (Negative); Urine Methamphetamines Negative (Negative); Urine Morphine/Opi cutoff 2000 Negative (Negative); Urine Oxycodone Negative (Negative); Urine Phencyclidine Negative (Negative); Urine Tetrahydrocannabinol Negative (Negative); Urine Tricyclic Antidepressant Negative (Negative)
--- NOTE | 2019-06-15 22:04 | PC.NURSE ---
Pt had numbness/tingling in right hand/fingers prior to coming to ED. He was splinted by EMS on [facility] and given a sling. He states the numbness and tingling has remained the same both before and after splinting in ED.
--- NOTE | 2019-06-15 23:34 | PC.NURSE ---
Critical care time for two separate periods of time: when patient arrived to ED for initial trauma assessment and care and for procedural sedation. Each period charted separately.
== END 2019-06-15 22:45 | disposition short-term general hospital (02) ==
PROVIDERS: Emergency Medicine; Emergency Provider Emergency Medicine
DX: S06.0X9A Concussion with loss of consciousness of unspecified duration, initial encounter (principal); S62.101A Fracture of unspecified carpal bone, right wrist, initial encounter for closed fracture; S22.31XA Fracture of one rib, right side, initial encounter for closed fracture; W13.2XXA Fall from, out of or through roof, initial encounter; Z23 Encounter for immunization
CPT/HCPCS: 25605; 29105; 36415; 70450; 70486; 71045; 71260; 72125; 73100; 73110; 73502; 74177; 76705; 80053; 80305; 80320; 81003; 82550; 82553; 83690; 84484; 85025; 85610; 85730; 86850; 86900; 86901; 90471; 93005; 94770; 96360; 96361; 99152; 99285; 99291; 90715; J2704; Q9967

== ENCOUNTER → 2023-06-05 10:25 | Outpatient (CLI) | payer BC, SELFPAY ==
[2023-06-05 20:10] LABS: Add Manual Diff / Slide Review NO; Basophils Absolute Auto 100 /uL (0-100); Eosinophils Absolute Auto 400 /uL (0-450); Eosinophils Percent Auto 5.1 % (2-4); Hematocrit 45.1 % (41-53); Hemoglobin 15.6 g/dL (13.5-17.5); Lymphocytes Absolute Auto 2600 /uL (1100-4500); Lymphocytes Percent Auto 35.4 % (25-40); Mean Corpuscular HGB Conc 34.7 % (30-36); Mean Corpuscular Volume 89.3 fL (80-100); Monocytes Absolute Auto 600 /uL (0-900); Monocytes Percent Auto 8.5 % (3-14); Neutrophils Absolute Auto 3600 /uL (1500-7000); Platelet Count 213 X10^3/uL (150-400); Red Blood Cell Count 5.04 X10^6/uL (4.5-5.9); Red Cell Distribution Width 13.2 % (11.6-14.8); White Blood Cell Count 7.2 X10^3/uL (4.5-11.0)
[2023-06-05 20:23] LABS: Alanine Aminotransferase 52 IU/L (<50); Albumin 4.2 g/dL (3.5-5.0); Albumin Globulin Ratio 1.3 (1.0-2.8); Alkaline Phosphatase 75 U/L (38-126); Aspartate Aminotransferase 51 IU/L (17-59); BUN Creatinine Ratio 15.5 (6-22); Bilirubin Total 2.1 mg/dL (0.2-1.3); Blood Urea Nitrogen 16 mg/dL (9-20); Calcium 9.4 mg/dL (8.4-10.2); Carbon Dioxide 29 mmol/L (22-32); Chloride 102 mmol/L (98-107); Cholesterol 174 mg/dL (140-199); Estimated Glomerular Filt Rate > 60 mL/min (>60); Globulin 3.3 g/dL (1.7-4.1); Glucose 102 mg/dL (70-100); HDL Cholesterol 48 mg/dL (40-60); HEMOLYSIS < 15 (0-50); LDL Cholesterol Calculated 113 mg/dL (<100); Potassium 4.5 mmol/L (3.4-5.1); Sodium 140 mmol/L (137-145); Total Protein 7.5 g/dL (6.3-8.2); Triglycerides 65 mg/dL (35-150)
[2023-06-05 20:52] LABS: Prostate Specific Antigen Scrn 3.39 ng/mL (0.1-4.0)
== END ==
PROVIDERS: PCP Family Medicine; Visit Provider Family Medicine
DX: B35.1 Tinea unguium (principal); Z13.6 Encounter for screening for cardiovascular disorders; Z86.19 Personal history of other infectious and parasitic diseases; Z12.5 Encounter for screening for malignant neoplasm of prostate; Z12.11 Encounter for screening for malignant neoplasm of colon
CPT/HCPCS: 80053; 80061; 85025; G0103

== ENCOUNTER → 2023-08-14 12:22 | Outpatient (CLI) | payer BC, SELFPAY ==
--- NOTE | 2023-08-14 12:23 | DI.US.S_ITS ---
PROCEDURE: US ABDOMEN LIMITED INDICATIONS: ELEVATED BILIRUBIN, ALT TECHNIQUE: Real-time scanning was performed of the abdominal and retroperitoneal organs, with image documentation. COMPARISON: CT, CT CHEST ABD PEL W CON, 06/15/2019, 19:24. [facility], US, US ABDOMEN LIMITED, 06/15/2019, 18:32. FINDINGS: Liver: Liver is normal in size and homogeneous in echotexture. Gallbladder: No gallstones. No gallbladder wall thickening, pericholecystic fluid or sonographic Bradley's sign. Biliary ducts: Intrahepatic bile ducts are non-dilated. Extrahepatic bile duct caliber measures 5.1 mm. Normal is 6-7 mm or less in diameter, or 10 mm or less post-cholecystectomy. Aorta: Visualized aorta is normal in caliber at less than 3 cm. Miscellaneous: No free abdominal fluid. IMPRESSION: 1. No acute abnormalities visualized. Dictated by: Dorian Gee M.D. on 08/14/2023 at 14:24 Approved by: Dorian Gee M.D. on 08/14/2023 at 14:26
[2023-08-14 13:52] LABS: HEMOLYSIS < 15 (0-50); Iron 121 ug/dL (49-181)
[2023-08-14 13:53] LABS: Alanine Aminotransferase 31 IU/L (<50); Albumin 4.1 g/dL (3.5-5.0); Albumin Globulin Ratio 1.2 (1.0-2.8); Alkaline Phosphatase 53 U/L (38-126); Aspartate Aminotransferase 30 IU/L (17-59); Bilirubin Total 3.1 mg/dL (0.2-1.3); Bilirubin Unconjugated 3.1 mg/dL (0.0-1.1); Globulin 3.3 g/dL (1.7-4.1); HEMOLYSIS 15 (0-50); Total Protein 7.4 g/dL (6.3-8.2)
[2023-08-14 14:03] LABS: Percent Iron Saturation 33 % (20-50); Total Iron Binding Capacity 367 ug/dL (261-462); Transferrin 264 mg/dL (206-381)
[2023-08-14 14:24] LABS: Thyroid Stimulating Hormone 1.67 uIU/mL (0.47-4.68)
[2023-08-14 14:29] LABS: Ferritin 47 ng/mL (18-464)
[2023-08-15 05:52] LABS: Ceruloplasmin 20.8 mg/dL (16.0-31.0); HBsAg Screen Negative (Negative); Hepatitis A Antibody IgM Negative (Negative); Hepatitis B Core Antibody IgM Negative (Negative); Hepatitis BE Antigen Negative (Negative); Hepatitis C Antibody Non Reactive (Non Reactive)
[2023-08-15 06:08] LABS: Alpha Fetoprotein 1.8 ng/mL (0.0-8.4)
[2023-08-16 04:11] LABS: Hepatitis B Surf Ab Qualitativ Non Reactive (.)
[2023-08-17 18:03] LABS: ANA Screen, IFA Negative (.)
[2023-08-22 13:47] LABS: Anti Mitochondrial ABY IGG <20.0 Units (0.0-20.0)
== END ==
PROVIDERS: PCP Family Medicine; Referring Provider Family Medicine; Visit Provider Family Medicine
DX: R74.01 Elevation of levels of liver transaminase levels (principal); R17 Unspecified jaundice; K76.9 Liver disease, unspecified
CPT/HCPCS: 36415; 76705; 80074; 80076; 82105; 82390; 82728; 83516; 83540; 83550; 84443; 86038; 86706; 87350

== ENCOUNTER 2023-08-15 09:01 | Day surgery (SDC) | payer BC, SELFPAY ==
[2023-08-15 09:32] VITALS: BMI 26.4
[2023-08-15 09:36] VITALS: BP 122/72; PULSE 92; RESP 16; TEMP 37; O2SAT 100
[2023-08-15] MEDS: LACTATED RINGERS 1,000 ML 42 ML IV (09:49)
--- NOTE | 2023-08-15 10:15 | PM.HP.1 ---
History of Present Illness History of Present Illness Date Patient Seen: 08/15/23 Time Patient Seen: 10:15 Chief complaint: SDC Narrative: The patient presents for colorectal screening. They have never had any previous examination for such. No personal or family history of colon cancer. On further history denies any recent gastrointestinal symptoms. No nausea, vomiting, abdominal pain, loss of appetite, unexplained weight loss, change in bowel habits, or blood per rectum. 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 EXERCISE: physical labor, biking and hiking TOB: none ETOH: occas FHX: DAD: macular degeneration mom -- cancer -- breast and uterine. survived both, now with demenita no LA, cVa, no diabetes. brother had GB removed. js Meds Home Medications and Allergies Home Medications Medication Instructions Recorded Confirmed Type efinaconazole 10 % topical 1 applic topical DAILY 52 weeks #8 08/08/23 08/15/23 Rx solution with applicator mL Allergies Allergy/AdvReac Type Severity Reaction Status Date / Time No Known Drug Allergies Allergy Verified 08/15/23 09:31 Exam Vital Signs (past 8 hours): - 08/15/23 09:36 Temperature 98.6 F Pulse Rate 92 H Respiratory Rate 16 Blood Pressure 122/72 Pulse Oximetry 100 Oxygen Delivery Method Room Air Oxygen Delivery Method Room Air Narrative Exam Narrative: General adult man alert oriented no acute distress Abdomen soft nontender nondistended Assessment & Plan Assessment & Plan narrative: The patient requires colorectal screening and colonoscopy is recommended. Technical details were discussed. Risks, benefits, alternatives explained. Risks including but not limited to myocardial infarction, aspiration, bleeding, pain, missed lesion, incomplete examination, need for further radiographic studies, colonic perforation, and need for major abdominal surgery were discussed. All questions were answered to their satisfaction, and they are in agreement with this plan.
--- NOTE | 2023-08-15 10:16 | PM.OP.COLON ---
Operative Date/Time/Diagnoses Date of procedure: 08/15/23 Time of procedure: 10:16 Pre-op diagnosis: Colorectal screening Post-op diagnosis: same Procedure & Clinicians Study performed: Colonoscopy Same procedure as scheduled: Yes Indications: 53-year-old man here for screening colonoscopy Surgeon: Lenin Rolle Procedure Notes Procedure in detail: The history and physical was performed/updated and the patient is ASA class is 1. The procedure was discussed in detail with the patient. Potential risks complications including infection, bleeding, missed diagnosis, perforation, need for surgery, and were explained. Their questions were answered and informed consent was obtained. Patient was brought to the procedure room and placed standard monitoring equipment. The patient's vital signs were monitored continuously throughout the entire procedure. Prior to starting time-out was performed. The patient was placed in the left lateral recumbent position. Procedural sedation was administered by anesthesia. Examination began with a thorough inspection of the perianal area there was no evidence of fissures, fistulae, external hemorrhoids or cutaneous malignancy. The colonoscopy scope was then placed into the anal canal and was advanced to the cecum, which was identified by the ileocecal valve, the appendiceal orifice and the confluence of the taenia. The scope was then slowly withdrawn examining colon thoroughly in all directions, irrigating it of any residual stool. Normal healthy colon. No masses or polyps. The patient tolerated the procedure well. They will be discharged once criteria are met. The prep was of good/excellent quality. The withdrawl time was 6 minutes. Impression: Normal colonoscopy Post-procedure Recommendations: Colonoscopy in 10 years Disposition: same day surgery
[2023-08-15 10:47] VITALS: BP 94/58; PULSE 82; RESP 11; TEMP 37.2; O2SAT 95
[2023-08-15 10:54] VITALS: BP 90/56; PULSE 77; RESP 12; O2SAT 95
[2023-08-15 11:00] VITALS: BP 96/62; PULSE 81; RESP 19; TEMP 36.9; O2SAT 95
[2023-08-15 11:02] VITALS: BP 101/63; PULSE 84; RESP 18; TEMP 37; O2SAT 95
--- NOTE | 2023-08-15 11:15 | SUR.PHASEII ---
Patient ready for D/C and waiting in [place] [address] for his ride to arrive. Will bring him out once she arrives
== END 2023-08-15 11:29 | disposition home or self-care (01) ==
PROVIDERS: PCP Family Medicine; Referring Provider Surgery; Visit Provider Surgery
PROC: 0DJD8ZZ Inspection of Lower Intestinal Tract, Via Natural or Artificial Opening Endoscopic (ICD-10-PCS; CPT 45378; principal; 2023-08-15 10:15)
DX: Z12.11 Encounter for screening for malignant neoplasm of colon (principal)
CPT/HCPCS: 45378; J2704